=== PATIENT | female | born 1990 | race Caucasian/White ===

== ENCOUNTER 2016-09-10 04:04 | Emergency (ER) | payer SELFPAY ==
[2016-09-10] MEDS ORDERED: LIDOCAINE 1% 50 ML MDV SUBQ STA (04:54)
[2016-09-10] MEDS ORDERED: LIDOCAINE-MPF 1% 5 ML VIAL ONE (05:01)
[2016-09-10] MEDS ORDERED: BACITRACIN OINT TOP STA (05:28)
== END 2016-09-10 05:54 | disposition home or self-care (01) ==
DX: S61.211A Laceration without foreign body of left index finger without damage to nail, initial encounter (principal); W26.0XXA Contact with knife, initial encounter; Y93.G1 Activity, food preparation and clean up; Y92.009 Unspecified place in unspecified non-institutional (private) residence as the place of occurrence of the external cause; F17.200 Nicotine dependence, unspecified, uncomplicated

== ENCOUNTER 2016-10-05 09:47 | Emergency (ER) | payer MEDICAID ==
[2016-10-05] MEDS ORDERED: PROMETHAZINE 25 MG/1 ML VIAL IM STA (10:21)
[2016-10-05] MEDS ORDERED: KETOROLAC 60 MG/2 ML VIAL IM STA (10:21)
[2016-10-05] MEDS ORDERED: HYDROmorphone 1 MG/ML SYRINGE IM STA (10:21)
[2016-10-05] MEDS ORDERED: HYDROmorphone 1 MG/ML SYRINGE ONE (10:28)
[2016-10-05] MEDS ORDERED: PROMETHAZINE 25 MG/1 ML VIAL ONE (10:29)
[2016-10-05] MEDS ORDERED: KETOROLAC 60 MG/2 ML VIAL ONE (10:29)
[2016-10-05] MEDS ORDERED: oxyCOD/ACETAMIN 5 MG/325 MG TABLET PO STA (13:08)
[2016-10-05] MEDS ORDERED: ONDANSETRON ODT 4 MG TABLET TL STA (13:08)
[2016-10-05] MEDS ORDERED: oxyCOD/ACETAMIN 5 MG/325 MG TABLET PO ONE (13:11)
[2016-10-05] MEDS ORDERED: ONDANSETRON ODT 4 MG TABLET ONE (13:12)
== END 2016-10-05 13:23 | disposition home or self-care (01) ==
DX: R10.32 Left lower quadrant pain (principal); R19.7 Diarrhea, unspecified; R11.0 Nausea; Z87.42 Personal history of other diseases of the female genital tract; F17.200 Nicotine dependence, unspecified, uncomplicated
CPT/HCPCS: 36415; 76705; 76830; 76856; 80053; 81003; 83690; 85025; 93976; 96372; 99283; 99284; A9270; J1170; Q0162

== ENCOUNTER 2016-12-21 13:46 | Emergency (ER) | payer OTHER, MEDICAID ==
[2016-12-21 15:15] VITALS: BP 135/98
--- NOTE | 2016-12-21 15:27 | ED Physician Documentation ---
History of Present Illness - Stated complaint Stated Complaint: BACK PX - Chief complaint Chief Complaint: Back Pain - Additonal information Additional information: hx from pt 26 y/o female lifted awkwardly at work and hurt her low back pain with ROM no numbness weakness or incont otherwise well denies preg Review of Systems Constitutional: denies: Fever GI: denies: Abdominal Pain : denies: Incontinent, Now EGA Musculoskeletal: reports: Back pain Neurologic: denies: Focal weakness, Numbness Immunocompromised: denies: Immunocompromised PD PAST MEDICAL HISTORY - Past Medical History Cardiovascular: None Respiratory: None Neuro: None Endocrine/Autoimmune: None GI: Other 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: Endometriosis, Ovarian cysts : None HEENT: None Psych: None Musculoskeletal: None Derm: None - Past Surgical History Past Surgical History: Yes General: Colonoscopy /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: Hysterectomy, Other - Present Medications Home Medications: Ambulatory Orders Medication Instructions Recorded Confirmed Cyclobenzaprine [Flexeril] 10 mg PO TID PRN #20 tablet 12/21/16 Ibuprofen [Motrin] 400 mg PO Q6H PRN #30 tablet 12/21/16 Lidocaine Patch 5% [Lidoderm Patch] 1 each TOP DAILY PRN #10 patch 12/21/16 - Allergies Allergies/Adverse Reactions: Allergies Allergy/AdvReac Type Severity Reaction Status Date / Time hydrocodone bitartrate * AdvReac Nausea Verified 12/21/16 13:51 [From Vicodin] - Social History Does the pt smoke?: Yes Smoking Status: Current every day smoker Does the pt drink ETOH?: Yes Does the pt have substance abuse?: No - Immunizations Immunizations are current?: Yes - POLST Patient has POLST: No PD ED PE NORMAL - Vitals Vital signs reviewed: Yes - Neck Neck: Supple, no meningeal sign - Cardiac Cardiac: RRR - Respiratory Respiratory: No respiratory distress, Clear bilaterally - Abdomen Abdomen: Soft, Non tender, Other (no pulsatile mass) - Back Back: No spinal TTP (no redness swelling or warmth, soft tissue spasm and limited ROM) - Derm Derm: Normal color, Other (aged bruise to cheek - pt state dog jumped up and hit her face) - Neuro 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, No motor deficit (hip flex knee ext foot dorsi plantar and great toe ext 5/5, no clonus, patellar DTR 2+/4 hue, nl sensation, denies saddle anesthesia), No sensory deficit Results - Vitals Vitals: Vital Signs - 24 hr 12/21/16 12/21/16 13:49 15:10 Temperature 36.2 C L 36.6 C Heart Rate 77 87 Respiratory 18 18 Rate Blood Pressure 130/94 H 135/98 H O2 Saturation 99 99 Oxygen O2 Source Room air PD MEDICAL DECISION MAKING - ED course ED course: muscular LBP s red flags Departure - Departure Disposition: Home, Self Care Clinical Impression: Back pain Qualifiers: Back pain location: low back pain Chronicity: acute Back pain laterality: unspecified Sciatica presence: without sciatica Qualified Code(s): M54.5 - Low back pain Condition: Good Follow-Up: Andreas Thomas PA-C [Primary Care Provider] - Prescriptions: Cyclobenzaprine [Flexeril] 10 mg PO TID PRN #20 tablet PRN Reason: Spasms Lidocaine Patch 5% [Lidoderm Patch] 1 each TOP DAILY PRN #10 patch PRN Reason: Pain Ibuprofen [Motrin] 400 mg PO Q6H PRN #30 tablet PRN Reason: Pain Comments: And also please have your PMD recheck your blood sugar - it was high today Forms: Activity restrictions
== END 2016-12-21 15:46 | disposition home or self-care (01) ==
LOC: ED 13:46
DX: M54.5 Low back pain (principal); X50.0XXA Overexertion from strenuous movement or load, initial encounter; Y93.89 Activity, other specified; Y92.89 Other specified places as the place of occurrence of the external cause; Y99.0 Civilian activity done for income or pay; F17.200 Nicotine dependence, unspecified, uncomplicated
CPT/HCPCS: 99283

== ENCOUNTER 2017-05-14 18:52 | Emergency (ER) | payer MEDICAID ==
--- NOTE | 2017-05-14 19:13 | ED Physician Documentation ---
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 No sick contacts or recent travel. No possibility of , she has had a hysterectomy.) Review of Systems Constitutional: reports: Chills, Fatigue. denies: Fever Ears: denies: Ear pain Nose: denies: Rhinorrhea / runny nose Throat: reports: Sore throat PD PAST MEDICAL HISTORY - Past Medical History Cardiovascular: None Respiratory: None Neuro: None Endocrine/Autoimmune: None GI: Other [employer]: Endometriosis, Ovarian cysts : None HEENT: None Psych: None Musculoskeletal: None Derm: None - Past Surgical History Past Surgical History: Yes General: Colonoscopy /[facility]: Hysterectomy, Other - Present Medications Home Medications: Ambulatory Orders Medication Instructions Recorded Confirmed No Known Home Medications [No 05/14/17 05/14/17 Known Home Medications] - Allergies Allergies/Adverse Reactions: Allergies Allergy/AdvReac Type Severity Reaction Status Date / Time hydrocodone bitartrate * AdvReac Nausea Verified 05/14/17 19:06 [From Vicodin] - Social History Does the pt smoke?: Yes Smoking Status: Current every day smoker Does the pt drink ETOH?: Yes Does the pt have substance abuse?: No - Immunizations Immunizations are current?: Yes - POLST Patient has POLST: No PD ED PE NORMAL - Vitals Vital signs reviewed: Yes - General General: Alert and oriented X 3, No acute distress - HEENT HEENT: Other (Tonsillar pillars are red but not swollen, no exudates, she has moderate anterior cervical adenopathy. TMs are normal.) - Neck Neck: Supple, no meningeal sign, No bony TTP - Cardiac Cardiac: RRR, No murmur - Respiratory Respiratory: No respiratory distress, Clear bilaterally - Neuro 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, Normal speech - Psych Psych: Normal mood, Normal affect Results - Vitals Vitals: Vital Signs - 24 hr 05/14/17 19:02 Temperature 36.7 C Heart Rate 94 Respiratory 16 Rate Blood Pressure 151/104 H O2 Saturation 100 Oxygen O2 Source Room air - Labs Labs: Laboratory Tests 05/14/17 19:09 Group A Strep Rapid Negative Departure - Departure Disposition: 01 Home, Self Care Clinical Impression: Pharyngitis Qualifiers: Pharyngitis/tonsillitis etiology: unspecified etiology Qualified Code(s): J02.9 - Acute pharyngitis, unspecified Condition: Good Record reviewed to determine appropriate education?: Yes Instructions: ED Pharyngitis Viral Report Pending Comments: Your blood pressure was elevated today on check into the emergency department. This does not mean that you have hypertension, it is a common phenomenon to come to the emergency department and have elevated blood pressure. I recommend that you see your primary care physician within the week to have it rechecked when you are feeling better. Forms: Activity restrictions
[2017-05-14 20:01] LABS: RAPID STREP SCREEN REAGENT QC YELLOW (YELLOW)
[2017-05-14 20:12] VITALS: BP 125/93
== END 2017-05-14 20:12 | disposition home or self-care (01) ==
LOC: ED 18:52
DX: J02.9 Acute pharyngitis, unspecified (principal); R03.0 Elevated blood-pressure reading, without diagnosis of hypertension
CPT/HCPCS: 87070; 87430; 99282; 99283

== ENCOUNTER 2017-07-03 09:59 | Emergency (ER) | payer MEDICAID ==
[2017-07-03] MEDS ORDERED: DEXAMETHASONE 10 MG/ML VIAL PO STA (10:28)
[2017-07-03] MEDS ORDERED: DEXAMETHASONE 10 MG/ML VIAL ONE (10:36)
[2017-07-03] MEDS ORDERED: CHERRY SYRUP 10 ML UDC PO ONE (10:36)
[2017-07-03 10:39] LABS: RAPID STREP SCREEN REAGENT QC YELLOW (YELLOW)
--- NOTE | 2017-07-03 11:11 | ED Physician Documentation ---
History of Present Illness - Stated complaint Stated Complaint: SORE THROAT - Chief complaint Chief Complaint: Heent - History obtained from History obtained from: Patient (pt states that she has had a sore throat for the past 24 hours. had sinus congestion about a week ago, no travel, no problems breathing, no rashes, no headache,) Review of Systems Unable to obtain: Unresponsive Constitutional: denies: Fever, Chills Eyes: denies: Discharge Ears: denies: Ear pain Nose: reports: Congestion. denies: Rhinorrhea / runny nose, Sinus pressure / pain Throat: reports: Sore throat, Swollen tonsils. 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, Other - Present Medications Home Medications: Ambulatory Orders Medication Instructions Recorded Confirmed Loratadine [Claritin] 10 mg PO DAILY #30 tablet 07/03/17 - Allergies Allergies/Adverse Reactions: Allergies Allergy/AdvReac Type Severity Reaction Status Date / Time hydrocodone bitartrate * AdvReac Nausea Verified 05/14/17 19:06 [From Vicodin] - Social History Does the pt smoke?: Yes Smoking Status: Current every day smoker Does the pt drink ETOH?: Yes Does the pt have substance abuse?: No - Immunizations Immunizations are current?: Yes - POLST Patient has POLST: No PD ED PE NORMAL - Vitals Vital signs reviewed: Yes - General General: Alert and oriented X 3, Well developed/nourished - HEENT HEENT: Atraumatic, EOMI, Ears normal, Moist mucous membranes, Pharynx benign, Dentition benign - Neck Neck: No adenopathy - Cardiac Cardiac: RRR, No murmur - Respiratory Respiratory: No respiratory distress, Clear bilaterally - Abdomen Abdomen: Soft - Derm Derm: Normal color, No rash - Extremities Extremities: No edema - Neuro 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 Eye Opening: Spontaneous Motor: Obeys Commands Verbal: Oriented GCS Score: 15 Results - Vitals Vitals: Vital Signs - 24 hr 07/03/17 10:07 Temperature 36.0 C L Heart Rate 91 Respiratory 14 Rate Blood Pressure 139/97 H O2 Saturation 100 Oxygen O2 Source Room air - Labs Labs: Laboratory Tests 07/03/17 10:13 Group A Strep Rapid Negative PD MEDICAL DECISION MAKING - ED course Complexity details: d/w patient ED course: rapid strep neg. no respiratory issues. doubt PNA, suspect this is viral URI with post nasal drip. no indication for ABX. discussed with pt. will treat symptoms. Departure - Departure Disposition: 01 Home, Self Care Clinical Impression: Pharyngitis Condition: Good Instructions: ED Pharyngitis Viral Follow-Up: primary, care provider [Other] Prescriptions: Loratadine [Claritin] 10 mg PO DAILY #30 tablet Comments: Increase your fluid intake. return to the ER for any new or worsening symptoms.
[2017-07-03 11:22] VITALS: BP 118/82
== END 2017-07-03 11:35 | disposition home or self-care (01) ==
LOC: ED 09:59
DX: J02.9 Acute pharyngitis, unspecified (principal); F17.200 Nicotine dependence, unspecified, uncomplicated
CPT/HCPCS: 87070; 87430; 99283; A9270

== ENCOUNTER 2017-08-29 20:32 | Emergency (ER) | payer SELFPAY ==
--- NOTE | 2017-08-29 20:45 | ED Physician Documentation ---
PD HPI LOWER EXT INJURY - Stated complaint Stated Complaint: R KNEE/TORRES PX - Chief complaint Chief Complaint: Ext Problem - History obtained from History obtained from: Patient - History of Present Illness PD HPI LOW EXT INJURY LOCATION: Right, Lower leg Type of injury: Fall Where injury occurred: Work Timing - onset: Other (initially she fell at work 1 week ago on slick floor, struck right anterior torres on ground, c/o proximal-mid right anterior tibial pain. This gradually improved, but she again fell today on the same floor and again reinjured the same right pre-tibial area. Worse with palpation.) Timing - details: Abrupt onset Pain level now: 8 Improved by: Rest Worsened by: Moving, Palpating Associated symptoms: Tingling. No: Weakness, Swelling, Discolored Similar symptoms before: Has not had sx before - Additional information Additional information: 6th [facility] ED visit over past 12 months Review of Systems Skin: denies: Abrasion (s), Laceration (s) Musculoskeletal: reports: Extremity pain, Pain with weight bearing. denies: Joint pain, Joint swelling Neurologic: reports: Numbness (paresthesias and decreased sensation). 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, Ovarian cysts : None HEENT: None Psych: None Musculoskeletal: None Derm: None - Past Surgical History Past Surgical History: Yes General: Colonoscopy /LEDGER POSTER: Hysterectomy, Other - Present Medications Home Medications: Ambulatory Orders Medication Instructions Recorded Confirmed No Known Home Medications [No 08/29/17 08/29/17 Known Home Medications] - Allergies Allergies/Adverse Reactions: Allergies Allergy/AdvReac Type Severity Reaction Status Date / Time hydrocodone bitartrate * AdvReac Nausea Verified 08/29/17 20:40 [From Vicodin] - Social History Does the pt smoke?: Yes Smoking Status: Current every day smoker Does the pt drink ETOH?: Yes Does the pt have substance abuse?: No - Immunizations Immunizations are current?: Yes - POLST Patient has POLST: No PD ED PE NORMAL - Vitals Vital signs reviewed: Yes - General General: Alert and oriented X 3, No acute distress, Well developed/nourished - Derm Derm: Normal color, Warm and dry, No rash - Extremities Extremities: No deformity, Normal ROM s pain, No edema - Neuro Neuro: No motor deficit, No sensory deficit PD ED PE EXPANDED - Extremities Extremities: Tenderness NELLIE LE visual: 1 - tenderness (TTP) Results - Vitals Vitals: Vital Signs - 24 hr 08/29/17 08/29/17 20:37 22:21 Temperature 37.1 C 36.9 C Heart Rate 124 H 90 Respiratory 18 18 Rate Blood Pressure 138/103 H 140/92 H O2 Saturation 100 98 Oxygen O2 Source Room air - Rads (name of study) right tib/fib xrays Radiology: Prelim report reviewed, See rad report PD MEDICAL DECISION MAKING - ED course Complexity details: reviewed results, re-evaluated patient, considered differential, d/w patient Departure - Departure Disposition: 01 Home, Self Care Clinical Impression: Pain of lower extremity, Contusion of lower leg, right Condition: Good Instructions: ED Contusion Lower Ext Follow-Up: Neftali Zacarias PA-C [Primary Care Provider] - Within 1 week Forms: Activity restrictions Discharge Date/Time: 08/29/17 22:35
--- NOTE | 2017-08-29 21:38 | XRAY Report ---
EXAM: RIGHT TIBIA/FIBULA RADIOGRAPHY EXAM DATE: 08/29/2017 09:28 PM. CLINICAL HISTORY: Proximal/mid tib/fib injury. COMPARISON: 01/16/2011. TECHNIQUE: 2 views. FINDINGS: Bones: No fracture or bone lesion. Joints: The visualized knee and ankle joints are normal. No effusions. Soft Tissues: No focal soft tissue swelling. IMPRESSION: No acute osseous abnormality. [facility] Referring Provider Line: [phone] SITE ID: [id number]
[2017-08-29 22:22] VITALS: BP 140/92
== END 2017-08-29 22:35 | disposition home or self-care (01) ==
LOC: ED 20:32
DX: M79.604 Pain in right leg (principal); S80.11XA Contusion of right lower leg, initial encounter; W18.30XA Fall on same level, unspecified, initial encounter; Y99.0 Civilian activity done for income or pay; F17.200 Nicotine dependence, unspecified, uncomplicated
CPT/HCPCS: 99283

== ENCOUNTER 2018-04-10 18:34 | Emergency (ER) | payer MEDICAID ==
[2018-04-10 20:45] VITALS: BP 138/94
[2018-04-10 20:58] LABS: BILIRUBIN,URINE NEGATIVE (NEGATIVE); GLUCOSE, URINE (UA) NEGATIVE (NEGATIVE); KETONES,URINE (UA) NEGATIVE (NEGATIVE); LEUKOCYTE ESTERASE, URINE NEGATIVE (NEGATIVE); NITRITE,URINE NEGATIVE (NEGATIVE); OCCULT BLOOD,URINE NEGATIVE (NEGATIVE); PROTEIN,URINE NEGATIVE (NEGATIVE); UROBILINOGEN,URINE 0.2 (NORMAL) E.U./dL (NORMAL)
[2018-04-10 21:00] LABS: CLARITY,URINE CLEAR (CLEAR)
--- NOTE | 2018-04-10 21:13 | ED Physician Documentation ---
PD HPI BACK PAIN - Stated complaint Stated Complaint: BK PX - Chief complaint Chief Complaint: Back Pain - History obtained from History obtained from: Patient - History of Present Illness Timing - onset: How many days ago (3) Timing - duration: Days Timing - details: Gradual onset Pain level now: 8 Location: Lower, Left Quality: Pain, Spasm Associated symptoms: No: Fever, Weakness, Numbness, Incontinent of urine, Unable to urinate, Hematuria, Incontinent of stool Improves with: Rest Worsened by: Movement Similar symptoms before: Has not had sx before Recently seen: Not recently seen - Additional information Additional information: woke 3 days ago from sleep with left mid/low back pain. Has been working past 2 days and has experienced gradually worsening of the back pain since it started 3 days ago. Pain is distinctly worse with movement. Contacted PMD's office, scheduled for next available appointment but this won't be for 2-3 weeks. 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, Ovarian cysts : None HEENT: None Psych: None Musculoskeletal: None Derm: None - Past Surgical History Past Surgical History: Yes General: Colonoscopy /BARREL 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: Hysterectomy, Other - Present Medications Home Medications: Ambulatory Orders Medication Instructions Recorded Confirmed Cyclobenzaprine [Flexeril] 10 mg PO TID PRN #20 tablet 04/10/18 Ondansetron Odt [Zofran] 4 mg TL Q6H PRN #14 tablet 04/10/18 oxyCODONE/ACET 5/325 [Percocet 5 1 - 2 each PO Q6H PRN #14 tablet 04/10/18 mg/325 mg] - Allergies Allergies/Adverse Reactions: Allergies Allergy/AdvReac Type Severity Reaction Status Date / Time hydrocodone bitartrate * AdvReac Nausea Verified 04/10/18 18:44 [From Vicodin] - Social History Does the pt smoke?: Yes Smoking Status: Current every day smoker Does the pt drink ETOH?: Yes Does the pt have substance abuse?: No - Immunizations Immunizations are current?: Yes - POLST Patient has POLST: No PD ED PE NORMAL - Vitals Vital signs reviewed: Yes - General General: Alert and oriented X 3, No acute distress, Well developed/nourished - Cardiac Cardiac: RRR, No murmur - Respiratory Respiratory: No respiratory distress, Clear bilaterally - Abdomen Abdomen: Soft, Non tender - Back Back: No CVA TTP, No spinal TTP - Derm Derm: No rash - Neuro Neuro: No motor deficit, No sensory deficit Results - Vitals Vitals: Vital Signs - 24 hr 04/10/18 04/10/18 18:41 20:45 Temperature 36 C L Heart Rate 88 71 Respiratory 16 16 Rate Blood Pressure 133/103 H 138/94 H O2 Saturation 98 100 Oxygen O2 Source Room air - Labs Labs: Laboratory Tests 04/10/18 20:48 Urine Color YELLOW Urine Clarity CLEAR Urine pH 6.0 Ur Specific [place] 1.020 Urine Protein NEGATIVE Urine Glucose (UA) NEGATIVE Urine Ketones NEGATIVE Urine Occult Blood NEGATIVE Urine Nitrite NEGATIVE Urine Bilirubin NEGATIVE Urine Urobilinogen 0.2 (NORMAL) Ur Leukocyte Esterase NEGATIVE Ur Microscopic Review NOT INDICATED Urine Culture Comments NOT INDICATED PD MEDICAL DECISION MAKING - ED course Complexity details: considered differential, d/w patient - Sepsis Event Vital Signs: Vital Signs - 24 hr 04/10/18 04/10/18 18:41 20:45 Temperature 36 C L Heart Rate 88 71 Respiratory 16 16 Rate Blood Pressure 133/103 H 138/94 H O2 Saturation 98 100 Oxygen O2 Source Room air Departure - Departure Disposition: 01 Home, Self Care Clinical Impression: Back pain Condition: Good Instructions: NARCOTIC, Oral, ED Neck Back Pain General Prescriptions: Cyclobenzaprine [Flexeril] 10 mg PO TID PRN #20 tablet PRN Reason: Spasms Ondansetron Odt [Zofran] 4 mg TL Q6H PRN #14 tablet PRN Reason: Nausea / Vomiting oxyCODONE/ACET 5/325 [Percocet 5 mg/325 mg] 1 - 2 each PO Q6H PRN #14 tablet PRN Reason: Pain Comments: Follow up with your doctor as scheduled Forms: Activity restrictions Discharge Date/Time: 04/10/18 21:48
[2018-04-10] MEDS ORDERED: CYCLOBENZAPRINE 10 MG TABLET PO STA (21:37)
[2018-04-10] MEDS ORDERED: oxyCODONE 5 MG TABLET PO STA (21:37)
[2018-04-10] MEDS ORDERED: ONDANSETRON ODT 4 MG TABLET TL STA (21:42)
== END 2018-04-10 21:48 | disposition home or self-care (01) ==
LOC: ED 18:34
DX: M54.9 Dorsalgia, unspecified (principal); F17.200 Nicotine dependence, unspecified, uncomplicated
CPT/HCPCS: 81003; 99283; A9270; Q0162; 81001; 87086

== ENCOUNTER 2018-09-09 05:24 | Outpatient (CLI) | payer MEDICAID | END 2018-09-09 05:25 | disposition critical access hospital (66) | LOC: EMS 05:24 | PROVIDERS: ATTEND Surgery | DX: R56.9 Unspecified convulsions (principal) | CPT/HCPCS: A0425; A0429 ==

== ENCOUNTER 2018-09-09 05:42 | Emergency (ER) | payer MEDICAID ==
--- NOTE | 2018-09-09 05:54 | ED Physician Documentation ---
History of Present Illness - Stated complaint Stated Complaint: BACK PAIN - Chief complaint Chief Complaint: Neuro - Additonal information Additional information: 27-year-old female was brought to the emergency department for evaluation of a possible seizure and back pain. The patient reports drinking heavily and Reports a possible seizure. Per second and accounts the patient had an episode where she was unresponsive and jerking for 20 seconds. No reports of postictal episode. The patient reports thoracic and lumbar spine pain. The patient denies chest pain, palpitations or any co-other coingestions. Presently the patient only reports back pain. No reports of saddle anesthesia, urinary retention, hematuria, overflow incontinence, motor weakness or sensory changes. No other associated symptoms. Presently the symptoms are moderate. 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, Ovarian cysts : None HEENT: None Psych: None Musculoskeletal: None Derm: None - Past Surgical History Past Surgical History: Yes General: Colonoscopy /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: Hysterectomy, Other - Present Medications Home Medications: Ambulatory Orders Medication Instructions Recorded Confirmed Cyclobenzaprine [Flexeril] 10 mg PO TID PRN #20 tablet 04/10/18 Ondansetron Odt [Zofran] 4 mg TL Q6H PRN #14 tablet 04/10/18 oxyCODONE/ACET 5/325 [Percocet 5 1 - 2 each PO Q6H PRN #14 tablet 04/10/18 mg/325 mg] - Allergies Allergies/Adverse Reactions: Allergies Allergy/AdvReac Type Severity Reaction Status Date / Time hydrocodone bitartrate * AdvReac Nausea Verified 09/09/18 05:49 [From Vicodin] - Social History Does the pt smoke?: Yes Smoking Status: Current every day smoker Does the pt drink ETOH?: Yes Does the pt have substance abuse?: No - Immunizations Immunizations are current?: Yes - POLST Patient has POLST: No PD ED PE NORMAL - General General: Alert and oriented X 3 - HEENT HEENT: Atraumatic, PERRL, EOMI, Ears normal - Neck Neck: Other (The patient is in a cervical collar and has diffuse back pain, the patient's cervical spine is unable to be cleared using the Nexus criteria) - Cardiac Cardiac: RRR (Tachycardia with regular rate), Strong equal pulses - Respiratory Respiratory: No respiratory distress, Clear bilaterally - Abdomen Abdomen: Soft, Non tender - Back Back: No spinal TTP (The patient is tender throughout the cervical, thoracic and lumbar spine) - Derm Derm: Normal color - Neuro 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, 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, No motor deficit, No sensory deficit, Normal speech PD ED PE EXPANDED - Psych Psych: Intoxicated / AOB Results - Vitals Vitals: Vital Signs - 24 hr 09/09/18 05:44 Temperature 36.2 C L Heart Rate 114 H Respiratory 20 Rate Blood Pressure 140/110 H O2 Saturation 99 Oxygen O2 Source Room air - EKG (time done) 0632 Rate: Rate (enter#) Rhythm: Sinus tachycardia [place]: Normal Intervals: Normal CT, QRS normal QRS: Normal Ischemia: Normal ST segments - Labs Labs: Laboratory Tests 09/09/18 09/09/18 09/09/18 06:06 06:06 06:06 WBC 7.8 RBC 3.98 L Hgb 13.8 Hct 40.2 MCV 101.0 H MCH 34.6 H MCHC 34.3 RDW 12.8 Plt Count 215 MPV 9.0 Neut # (Auto) 4.9 Lymph # (Auto) 2.4 [place] # (Auto) 0.4 Eos # (Auto) 0.1 Baso # (Auto) 0.1 Absolute Nucleated RBC 0.01 Nucleated RBC % 0.1 Sodium 136 Potassium 3.4 L Chloride 104 Carbon Dioxide 22 Anion Gap 10.0 BUN 9 Creatinine 0.8 Estimated GFR (MDRD) 85 L Glucose 94 Calcium 8.9 Total Bilirubin 0.6 AST 26 ALT 20 Alkaline Phosphatase 55 Total Protein 7.9 Albumin 4.2 Globulin 3.7 Albumin/Globulin Ratio 1.1 Lipase 32 Serum HCG, Qual NEGATIVE Salicylates < 6.0 Acetaminophen < 10 L Ethyl Alcohol 287.7 PD MEDICAL DECISION MAKING - ED course ED course: At 7 AM the case was turned over to the oncoming physician Dr. Howell for follow-up on the lab work, CT scan of the head and neck and x-rays of the lumbar and thoracic spine, and final disposition. Departure - Departure Clinical Impression: Seizure, Intoxication Back pain Qualifiers: Back pain location: back pain in unspecified location Chronicity: acute Back pain laterality: unspecified Qualified Code(s): M54.9 - Dorsalgia, unspecified Condition: Stable Comments: Please follow-up with your primary care physician this coming week for recheck. Please asked for your primary care to arrange for an outpatient EEG to further assess your symptoms which occurred today. Please return to the emergency department any point for reevaluation for worsening symptoms or any concerns
[2018-09-09] MEDS: SODIUM CHLORIDE 0.9% 1,000 ML IV ONE (06:17)
[2018-09-09 06:22] LABS: BASOPHILS # (AUTO) 0.1 10^3/uL (0.0-0.1); BASOPHILS % (AUTO) 0.6 %; EOSINOPHILS # (AUTO) 0.1 10^3/uL (0.0-0.7); EOSINOPHILS % (AUTO) 0.9 %; HGB - HEMOGLOBIN 13.8 g/dL (12.0-16.0); LYMPHOCYTES # (AUTO) 2.4 10^3/uL (1.5-3.5); LYMPHOCYTES % (AUTO) 30.8 %; MEAN CORPUSCULAR HEMOGLOBIN 34.6 pg (27.0-31.0); MEAN CORPUSCULAR HGB CONC 34.3 g/dL (32.0-36.0); MONOCYTES # (AUTO) 0.4 10^3/uL (0.0-1.0); MONOCYTES % (AUTO) 4.8 %; NEUTROPHILS # (AUTO) 4.9 10^3/uL (1.5-6.6); NEUTROPHILS % (AUTO) 62.9 %; PLT - PLATELET COUNT 215 10^3/uL (130-450); RED BLOOD COUNT 3.98 10^6/uL (4.20-5.40); RED CELL DISTRIBUTION WIDTH 12.8 % (12.0-15.0); WHITE BLOOD COUNT 7.8 x10^3/uL (4.8-10.8)
[2018-09-09 06:43] LABS: HCG,QUALITATIVE BLOOD NEGATIVE
[2018-09-09 06:47] LABS: ACETAMINOPHEN < 10 ug/mL (10-30); ALBUMIN 4.2 g/dL (3.2-5.5); ALBUMIN/GLOBULIN RATIO 1.1 (1.0-2.2); ALKALINE PHOSPHATASE 55 IU/L (42-121); ALT ALANINE AMINOTRANSFERASE 20 IU/L (10-60); AST ASPARTATE AMINOTRANSFERASE 26 IU/L (10-42); BILIRUBIN,TOTAL 0.6 mg/dL (0.2-1.0); BUN - BLOOD UREA NITROGEN 9 mg/dL (6-20); CALCIUM 8.9 mg/dL (8.5-10.3); CARBON DIOXIDE - CO2 22 mmol/L (21-32); CHLORIDE 104 mmol/L (101-111); CREATININE 0.8 mg/dL (0.4-1.0); GFR - MDRD 85 (>89); GLUCOSE 94 mg/dL (70-100); LIPASE 32 U/L (22-51); SALICYLATE < 6.0 mg/dL; SODIUM 136 mmol/L (135-145); TOTAL PROTEIN 7.9 g/dL (6.7-8.2)
[2018-09-09 06:57] LABS: MUDS CUTOFF CONCENTRATIONS CUTOFF CONC BELOW:
[2018-09-09 06:58] LABS: BILIRUBIN,URINE NEGATIVE (NEGATIVE); GLUCOSE, URINE (UA) NEGATIVE (NEGATIVE); KETONES,URINE (UA) NEGATIVE (NEGATIVE); LEUKOCYTE ESTERASE, URINE NEGATIVE (NEGATIVE); NITRITE,URINE NEGATIVE (NEGATIVE); OCCULT BLOOD,URINE NEGATIVE (NEGATIVE); PROTEIN,URINE NEGATIVE (NEGATIVE); UROBILINOGEN,URINE 0.2 (NORMAL) E.U./dL (NORMAL)
[2018-09-09 07:06] LABS: CLARITY,URINE CLEAR (CLEAR)
[2018-09-09 07:45] LABS: AMPHETAMINE SCREEN,URINE NEGATIVE (NEGATIVE); BENZODIAZEPINES SCREEN, URINE NEGATIVE (NEGATIVE); COCAINE SCREEN URINE NEGATIVE (NEGATIVE); METHADONE SCREEN, URINE NEGATIVE (NEGATIVE); METHAMPHETAMINES SCREEN, URINE NEGATIVE (NEGATIVE); OPIATE SCREEN, URINE NEGATIVE (NEGATIVE); OXYCODONE SCREEN, URINE NEGATIVE (NEGATIVE); PROPOXYPHENE SCREEN, URINE NEGATIVE (NEGATIVE); TRICYCLIC ANTIDEPRESSANT,URINE NEGATIVE (NEGATIVE)
--- NOTE | 2018-09-09 07:55 | CT Report ---
Reason: gaviota bacon, fawno Procedure Date: 09/09/2018 Accession Number: [id number] / [id number] Procedure: CT - HEAD WO CPT Code: FULL RESULT: EXAM: CT HEAD EXAM DATE: 09/09/2018 07:10 AM. CLINICAL HISTORY: gaviota Bacon etho. COMPARISON: None. TECHNIQUE: Multiaxial CT images were obtained from the foramen magnum to the vertex. Reformats: Sagittal and coronal. IV contrast: None. In accordance with CT protocol optimization, one or more of the following dose reduction techniques were utilized for this exam: automated exposure control, adjustment of mA and/or KV based on patient size, or use of iterative reconstructive technique. FINDINGS: Parenchyma: No intraparenchymal hemorrhage. No evidence of mass, midline shift, or CT findings of infarction. Linton-white differentiation is distinct. Extraaxial Spaces: Normal for age. No subdural or epidural collections identified. Ventricles: Normal in size and position. Sinuses and Orbits: Mild chronic appearing sphenoid sinus disease. Imaged paranasal sinuses, orbits, and mastoids show no other abnormality. Bones: No evidence of fracture or calvarial defect. IMPRESSION: No evidence of acute intracranial process RADIA
--- NOTE | 2018-09-09 08:00 | CT Report ---
Reason: redd, gaviota, fawno Procedure Date: 09/09/2018 Accession Number: [id number] / [id number] Procedure: CT - CERVICAL SPINE WO CPT Code: FULL RESULT: EXAM: CT CERVICAL SPINE WITHOUT CONTRAST DATE: 09/09/2018 07:10 AM. HISTORY: Redd, gaviota, melissa. COMPARISONS: None. TECHNIQUE: Thin-section axial images were acquired of the cervical spine without contrast. Post-processing: Coronal and sagittal reformats. Other: None. In accordance with CT protocol optimization, one or more of the following dose reduction techniques were utilized for this exam: automated exposure control, adjustment of mA and/or KV based on patient size, or use of iterative reconstructive technique. FINDINGS: Alignment: No scoliosis or spondylolisthesis. Bones: No fracture or bone lesion. There is mild chronic appearing sphenoid sinus disease. Interspace Levels/Facets: C1-C2: Unremarkable. C2-C3: Unremarkable. C3-C4: Unremarkable. C4-C5: Unremarkable. C5-C6: Unremarkable. C6-C7: Unremarkable. C7-T1: Unremarkable. Musculature: No fatty atrophy. Other: The paravertebral and prevertebral soft tissues are unremarkable. The lung apices are clear. IMPRESSION: No evidence of cervical spine fracture RADIA
--- NOTE | 2018-09-09 08:09 | XRAY Report ---
Reason: back pain Procedure Date: 09/09/2018 Accession Number: [id number] / [id number] Procedure: XR - Thoracic Spine 2 View CPT Code: FULL RESULT: EXAM: THORACIC SPINE RADIOGRAPHY EXAM DATE: 09/09/2018 07:23 AM. CLINICAL HISTORY: Back pain. COMPARISON: Chest 07/07/2014. TECHNIQUE: 2 views. FINDINGS: Alignment: No spondylolisthesis or scoliosis. Bones: No fractures or bone lesions. Disks: Disk heights are maintained. Soft Tissues: The visualized lungs and cardiomediastinal silhouette are unremarkable. IMPRESSION: Negative thoracic spine radiography. RADIA
--- NOTE | 2018-09-09 08:10 | XRAY Report ---
Reason: back pain Procedure Date: 09/09/2018 Accession Number: [id number] / [id number] Procedure: XR - Lumbar Spine 2 View CPT Code: FULL RESULT: EXAM: LUMBOSACRAL SPINE RADIOGRAPHY EXAM DATE: 09/09/2018 07:24 AM. CLINICAL HISTORY: Back pain. COMPARISONS: None. TECHNIQUE: 2 views. FINDINGS: Alignment: No spondylolisthesis or scoliosis. Bones: Five [id number] lumbar vertebral bodies are present. No fractures or bone lesions. Disks: Disk heights are maintained. Facets: No degenerative changes. Sacroiliac Joints: Unremarkable. Soft Tissues: The visualized bowel gas pattern is normal. IMPRESSION: Negative lumbar spine radiography. RADIA
--- NOTE | 2018-09-09 08:13 | ED Physician Documentation ---
History of Present Illness - Stated complaint Stated Complaint: BACK PAIN - Chief complaint Chief Complaint: Neuro - History obtained from History obtained from: Patient - History of Present Illness Timing: Today PD PAST MEDICAL HISTORY - Past Medical History Past Medical History: Yes Cardiovascular: None Respiratory: None Endocrine/Autoimmune: None GI: Other ASSOCIATE BROKER: Endometriosis, Ovarian cysts : None HEENT: None Psych: None Musculoskeletal: None Derm: None - Past Surgical History Past Surgical History: Yes General: Colonoscopy /ASSOCIATE BROKER: Hysterectomy, Other - Present Medications Home Medications: Ambulatory Orders Medication Instructions Recorded Confirmed Cyclobenzaprine [Flexeril] 10 mg PO TID PRN #20 tablet 04/10/18 Ondansetron Odt [Zofran] 4 mg TL Q6H PRN #14 tablet 04/10/18 oxyCODONE/ACET 5/325 [Percocet 5 1 - 2 each PO Q6H PRN #14 tablet 04/10/18 mg/325 mg] - Allergies Allergies/Adverse Reactions: Allergies Allergy/AdvReac Type Severity Reaction Status Date / Time hydrocodone bitartrate * AdvReac Nausea Verified 09/09/18 05:49 [From Vicodin] - Social History Does the pt smoke?: Yes Smoking Status: Current every day smoker Does the pt drink ETOH?: Yes Does the pt have substance abuse?: No - Immunizations Immunizations are current?: Yes - POLST Patient has POLST: No Results - Vitals Vitals: Vital Signs - 24 hr 09/09/18 09/09/18 05:44 07:44 Temperature 36.2 C L Heart Rate 114 H 104 H Respiratory 20 14 Rate Blood Pressure 140/110 H 120/97 H O2 Saturation 99 98 Oxygen O2 Source Room air - Labs Labs: Laboratory Tests 09/09/18 09/09/18 09/09/18 06:06 06:06 06:06 WBC 7.8 RBC 3.98 L Hgb 13.8 Hct 40.2 MCV 101.0 H MCH 34.6 H MCHC 34.3 RDW 12.8 Plt Count 215 MPV 9.0 Neut # (Auto) 4.9 Lymph # (Auto) 2.4 [place] # (Auto) 0.4 Eos # (Auto) 0.1 Baso # (Auto) 0.1 Absolute Nucleated RBC 0.01 Nucleated RBC % 0.1 Sodium 136 Potassium 3.4 L Chloride 104 Carbon Dioxide 22 Anion Gap 10.0 BUN 9 Creatinine 0.8 Estimated GFR (MDRD) 85 L Glucose 94 Calcium 8.9 Total Bilirubin 0.6 AST 26 ALT 20 Alkaline Phosphatase 55 Total Protein 7.9 Albumin 4.2 Globulin 3.7 Albumin/Globulin Ratio 1.1 Lipase 32 Serum HCG, Qual NEGATIVE Urine Color Urine Clarity Urine pH Ur Specific [place] Urine Protein Urine Glucose (UA) Urine Ketones Urine Occult Blood Urine Nitrite Urine Bilirubin Urine Urobilinogen Ur Leukocyte Esterase Ur Microscopic Review Urine Culture Comments Salicylates < 6.0 Urine Opiates Screen Ur Oxycodone Screen Urine Methadone Screen Ur Propoxyphene Screen Acetaminophen < 10 L Ur Barbiturates Screen Ur Tricyclics Screen Ur Phencyclidine Scrn Ur Amphetamine Screen U Methamphetamines Scrn U Benzodiazepines Scrn Urine Cocaine Screen U Cannabinoids Screen Ethyl Alcohol 287.7 09/09/18 06:55 WBC RBC Hgb Hct MCV MCH MCHC RDW Plt Count MPV Neut # (Auto) Lymph # (Auto) [place] # (Auto) Eos # (Auto) Baso # (Auto) Absolute Nucleated RBC Nucleated RBC % Sodium Potassium Chloride Carbon Dioxide Anion Gap BUN Creatinine Estimated GFR (MDRD) Glucose Calcium Total Bilirubin AST ALT Alkaline Phosphatase Total Protein Albumin Globulin Albumin/Globulin Ratio Lipase Serum HCG, Qual Urine Color YELLOW Urine Clarity CLEAR Urine pH 7.0 Ur Specific [place] 1.015 Urine Protein NEGATIVE Urine Glucose (UA) NEGATIVE Urine Ketones NEGATIVE Urine Occult Blood NEGATIVE Urine Nitrite NEGATIVE Urine Bilirubin NEGATIVE Urine Urobilinogen 0.2 (NORMAL) Ur Leukocyte Esterase NEGATIVE Ur Microscopic Review NOT INDICATED Urine Culture Comments NOT INDICATED Salicylates Urine Opiates Screen NEGATIVE Ur Oxycodone Screen NEGATIVE Urine Methadone Screen NEGATIVE Ur Propoxyphene Screen NEGATIVE Acetaminophen Ur Barbiturates Screen NEGATIVE Ur Tricyclics Screen NEGATIVE Ur Phencyclidine Scrn NEGATIVE Ur Amphetamine Screen NEGATIVE U Methamphetamines Scrn NEGATIVE U Benzodiazepines Scrn NEGATIVE Urine Cocaine Screen NEGATIVE U Cannabinoids Screen NEGATIVE Ethyl Alcohol - Rads (name of study) Cervical spine CT Radiology: Prelim report reviewed (Impression: No evidence of cervical spine fracture.), EMP read indepedently, See rad report CT head without Radiology: Prelim report reviewed (Impression: No evidence of acute intracranial process), EMP read indepedently, See rad report thoracic spine Radiology: Prelim report reviewed (Impression: Negative thoracic spine radiology.), EMP read indepedently, See rad report lumbar spine Radiology: Prelim report reviewed (Impression: Negative lumbar spine radiography.), EMP read indepedently, See rad report PD MEDICAL DECISION MAKING - ED course Complexity details: considered differential, d/w patient, d/w family ED course: 27-year-old female who was intoxicated and brought to the hospital by ambulance when a roommate reported she was having a seizure in the back of a car. The patient has no recollection of this or the details of what happened and she is not able to get a hold of her roommate this morning for confirmation. The patient seems maybe evasive about the situation. I have no confirmation that the patient actually had a seizure. Departure - Departure Disposition: 01 Home, Self Care Clinical Impression: Seizure, Intoxication Back pain Qualifiers: Back pain location: back pain in unspecified location Chronicity: acute Back pain laterality: unspecified Qualified Code(s): M54.9 - Dorsalgia, unspecified Condition: Stable Instructions: ED Seizure New Onset Unk Cause, ED Alcohol Intoxication Follow-Up: [facility] [Provider Group] Comments: Please follow-up with your primary care physician this coming week for recheck. Please asked for your primary care to arrange for an outpatient EEG to further assess your symptoms which occurred today. Please return to the emergency department any point for reevaluation for worsening symptoms or any concerns
[2018-09-09 11:44] VITALS: BP 132/88
== END 2018-09-09 11:43 | disposition home or self-care (01) ==
LOC: EDUNIT# → ED 05:42
DX: R56.9 Unspecified convulsions (principal); F10.920 Alcohol use, unspecified with intoxication, uncomplicated; R00.0 Tachycardia, unspecified; F17.200 Nicotine dependence, unspecified, uncomplicated; M54.5 Low back pain; M54.6 Pain in thoracic spine; M54.2 Cervicalgia
CPT/HCPCS: 36415; 70450; 72070; 72100; 72125; 80053; 80306; 80307; 80320; 80329; 81001; 81003; 83690; 84703; 85025; 87086; 93005; 96360; 96361; 99283; 99284

== ENCOUNTER 2019-04-28 03:52 | Emergency (ER) | payer MEDICAID ==
[2019-04-28 04:22] LABS: BASOPHILS # (AUTO) 0.1 10^3/uL (0.0-0.1); BASOPHILS % (AUTO) 0.8 %; EOSINOPHILS # (AUTO) 0.1 10^3/uL (0.0-0.7); EOSINOPHILS % (AUTO) 1.4 %; HGB - HEMOGLOBIN 14.6 g/dL (12.0-16.0); LYMPHOCYTES # (AUTO) 2.7 10^3/uL (1.5-3.5); LYMPHOCYTES % (AUTO) 37.6 %; MEAN CORPUSCULAR HEMOGLOBIN 33.6 pg (27.0-31.0); MEAN CORPUSCULAR HGB CONC 34.2 g/dL (32.0-36.0); MEAN CORPUSCULAR VOLUME 98.2 fL (81.0-99.0); MEAN PLATELET VOLUME 10.8 fL (7.9-10.8); MONOCYTES # (AUTO) 0.3 10^3/uL (0.0-1.0); MONOCYTES % (AUTO) 4.1 %; NEUTROPHILS % (AUTO) 55.8 %; PLT - PLATELET COUNT 250 10^3/uL (130-450); RED BLOOD COUNT 4.35 10^6/uL (4.20-5.40); RED CELL DISTRIBUTION WIDTH 12.3 % (12.0-15.0); WHITE BLOOD COUNT 7.1 x10^3/uL (4.8-10.8)
[2019-04-28 04:35] LABS: ALBUMIN 4.4 g/dL (3.2-5.5); ALBUMIN/GLOBULIN RATIO 1.2 (1.0-2.2); BILIRUBIN,TOTAL 0.5 mg/dL (0.2-1.0); CALCIUM 9.6 mg/dL (8.5-10.3); CREATININE 0.7 mg/dL (0.4-1.0); TOTAL PROTEIN 8.2 g/dL (6.7-8.2)
--- NOTE | 2019-04-28 05:15 | ED Physician Documentation ---
History of Present Illness - Stated complaint Stated Complaint: SZ? - Chief complaint Chief Complaint: Neuro - History obtained from History obtained from: Patient - History of Present Illness Timing: Today Pain level now: 0 Improved by: nothing (spontaneously resolved) - Additonal information Additional information: patient returned home after playing pool in local [employer]. she was walking up stairs at home when she had LOC, does not recall event. she says her BF described to her that she had LOC and stiffness (whole body) that lasted 1-2 minutes. she does not know how long it was before she was able to walk back to bedroom with boyfriends assistance (again due to amnestic for events), but she was told that she then fell to the floor and had another similar event of body stiffening, lasting less than a minute. she presents AAOx3 and in NAD. boyfriend was in ED earlier but not present by the time of this H+P. Patient says she had one similar episode in the past, T+R from this ED with suspected seizure. she says she contacted a neurologists office for f/u (would have been establishing visit), but she could not be seen for approximately 2 months and thus did not make appointment. Review of Systems Constitutional: reports: Reviewed and negative Eyes: reports: Reviewed and negative Cardiac: reports: Reviewed and negative Respiratory: reports: Reviewed and negative GI: reports: Reviewed and negative : denies: Now EGA Musculoskeletal: reports: Reviewed and negative Neurologic: reports: Seizure, Unresponsive, Head injury, LOC. denies: Generalized weakness, Focal weakness, Numbness, Difficulty speaking, Near syncope, Syncope, Confused, Altered mental status, Headache PD PAST MEDICAL HISTORY - Past Medical History Past Medical History: Yes Cardiovascular: None Respiratory: None Neuro: Seizure disorder Endocrine/Autoimmune: None GI: None CANT HOOKER: Endometriosis, Ovarian cysts : None HEENT: None Psych: None Musculoskeletal: None Derm: None - Past Surgical History Past Surgical History: Yes General: Colonoscopy /CANT HOOKER: Hysterectomy, Other - Present Medications Home Medications: Ambulatory Orders Medication Instructions Recorded Confirmed Cyclobenzaprine [Flexeril] 10 mg PO TID PRN #20 tablet 04/10/18 Ondansetron Odt [Zofran] 4 mg TL Q6H PRN #14 tablet 04/10/18 oxyCODONE/ACET 5/325 [Percocet 5 1 - 2 each PO Q6H PRN #14 tablet 04/10/ mg/325 mg] - Allergies Allergies/Adverse Reactions: Allergies Allergy/AdvReac Type Severity Reaction Status Date / Time hydrocodone bitartrate * AdvReac Nausea Verified 09/09/18 05:49 [From Vicodin] - Social History Does the pt smoke?: Yes Smoking Status: Current every day smoker Does the pt drink ETOH?: Yes Does the pt have substance abuse?: No - Immunizations Immunizations are current?: Yes - POLST Patient has POLST: No PD ED PE NORMAL - Vitals Vital signs reviewed: Yes - General General: Alert and oriented X 3, No acute distress, Well developed/nourished - HEENT HEENT: PERRL, EOMI, Moist mucous membranes - Neck Neck: Supple, no meningeal sign, No bony TTP - Cardiac Cardiac: No murmur - Respiratory Respiratory: No respiratory distress, Clear bilaterally - Extremities Extremities: No tenderness to palpate, Normal ROM s pain - Neuro 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, assembler motor vehicle 2-12 intact, No motor deficit, No sensory deficit, Normal speech Eye Opening: Spontaneous Motor: Obeys Commands Verbal: Oriented GCS Score: 15 - Psych Psych: Normal mood, Normal affect PD ED PE EXPANDED - HEENT HEENT Visual: 1 - bruising (faint erythema with minimal tenderness, no crepitus or deformity) 2 - swelling (mild lower lip swelling without laceration. no dental tenderness or laxity) - Cardiac Cardiac: Tachy, Regular Rhythm Results - Vitals Vitals: Oxygen O2 Source Room air - Labs Labs: Laboratory Tests 04/28/19 04/28/19 04/28/19 04:12 04:12 05:09 WBC 7.1 RBC 4.35 Hgb 14.6 Hct 42.7 MCV 98.2 MCH 33.6 H MCHC 34.2 RDW 12.3 Plt Count 250 MPV 10.8 Neut # (Auto) 4.0 Lymph # (Auto) 2.7 [place] # (Auto) 0.3 Eos # (Auto) 0.1 Baso # (Auto) 0.1 Absolute Nucleated RBC 0.00 Nucleated RBC % 0.0 Sodium 144 Potassium 4.3 Chloride 105 Carbon Dioxide 25 Anion Gap 14.0 H BUN 13 Creatinine 0.7 Estimated GFR (MDRD) 99 Glucose 100 Calcium 9.6 Total Bilirubin 0.5 AST 24 ALT 21 Alkaline Phosphatase 49 Total Protein 8.2 Albumin 4.4 Globulin 3.8 Albumin/Globulin Ratio 1.2 Lipase 38 Urine Color Urine Clarity Urine pH Ur Specific [place] Urine Protein Urine Glucose (UA) Urine Ketones Urine Occult Blood Urine Nitrite Urine Bilirubin Urine Urobilinogen Ur Leukocyte Esterase Ur Microscopic Review Urine Culture Comments Urine HCG, Qual Urine Opiates Screen NEGATIVE Ur Oxycodone Screen NEGATIVE Urine Methadone Screen NEGATIVE Ur Propoxyphene Screen NEGATIVE Ur Barbiturates Screen NEGATIVE Ur Tricyclics Screen NEGATIVE Ur Phencyclidine Scrn NEGATIVE Ur Amphetamine Screen NEGATIVE U Methamphetamines Scrn NEGATIVE U Benzodiazepines Scrn NEGATIVE Urine Cocaine Screen NEGATIVE U Cannabinoids Screen NEGATIVE Ethyl Alcohol 224.5 04/28/19 05:09 WBC RBC Hgb Hct MCV MCH MCHC RDW Plt Count MPV Neut # (Auto) Lymph # (Auto) [place] # (Auto) Eos # (Auto) Baso # (Auto) Absolute Nucleated RBC Nucleated RBC % Sodium Potassium Chloride Carbon Dioxide Anion Gap BUN Creatinine Estimated GFR (MDRD) Glucose Calcium Total Bilirubin AST ALT Alkaline Phosphatase Total Protein Albumin Globulin Albumin/Globulin Ratio Lipase Urine Color YELLOW Urine Clarity CLEAR Urine pH 6.0 Ur Specific [place] 1.015 Urine Protein NEGATIVE Urine Glucose (UA) NEGATIVE Urine Ketones NEGATIVE Urine Occult Blood TRACE-LYSE Urine Nitrite NEGATIVE Urine Bilirubin NEGATIVE Urine Urobilinogen 0.2 (NORMAL) Ur Leukocyte Esterase NEGATIVE Ur Microscopic Review NOT INDICATED Urine Culture Comments NOT INDICATED Urine HCG, Qual NEGATIVE Urine Opiates Screen Ur Oxycodone Screen Urine Methadone Screen Ur Propoxyphene Screen Ur Barbiturates Screen Ur Tricyclics Screen Ur Phencyclidine Scrn Ur Amphetamine Screen U Methamphetamines Scrn U Benzodiazepines Scrn Urine Cocaine Screen U Cannabinoids Screen Ethyl Alcohol PD MEDICAL DECISION MAKING - ED course Complexity details: reviewed old records, reviewed results, re-evaluated patient, considered differential, d/w patient ED course: seizure vs. syncope. she is in NAD during ED stay with normal neurologic exam. discussed option of starting her on AED which she declines. I emphasized the need for f/u with neurology, as she might need further testing such as EEG Departure - Departure Disposition: Home, Self Care Clinical Impression: Seizure Condition: Good Instructions: ED Seizure New Onset Unk Cause Comments: You need to follow up with a neurologist. Contact your primary care provider's office to request a referral; you might be instructed to see your primary care provider to get the referral. Discharge Date/Time: 04/28/19 08:29
[2019-04-28 05:18] LABS: MUDS CUTOFF CONCENTRATIONS CUTOFF CONC BELOW:
[2019-04-28 05:20] LABS: BILIRUBIN,URINE NEGATIVE (NEGATIVE); GLUCOSE, URINE (UA) NEGATIVE (NEGATIVE); KETONES,URINE (UA) NEGATIVE (NEGATIVE); LEUKOCYTE ESTERASE, URINE NEGATIVE (NEGATIVE); NITRITE,URINE NEGATIVE (NEGATIVE); OCCULT BLOOD,URINE TRACE-LYSE (NEGATIVE); PROTEIN,URINE NEGATIVE (NEGATIVE); UROBILINOGEN,URINE 0.2 (NORMAL) E.U./dL (NORMAL)
[2019-04-28 05:22] LABS: CLARITY,URINE CLEAR (CLEAR); HCG UR QUAL NEGATIVE
[2019-04-28 05:30] LABS: AMPHETAMINE SCREEN,URINE NEGATIVE (NEGATIVE); BENZODIAZEPINES SCREEN, URINE NEGATIVE (NEGATIVE); COCAINE SCREEN URINE NEGATIVE (NEGATIVE); METHADONE SCREEN, URINE NEGATIVE (NEGATIVE); METHAMPHETAMINES SCREEN, URINE NEGATIVE (NEGATIVE); OPIATE SCREEN, URINE NEGATIVE (NEGATIVE); OXYCODONE SCREEN, URINE NEGATIVE (NEGATIVE); PROPOXYPHENE SCREEN, URINE NEGATIVE (NEGATIVE); TRICYCLIC ANTIDEPRESSANT,URINE NEGATIVE (NEGATIVE)
[2019-04-28] MEDS ORDERED: SODIUM CHLORIDE 0.9% 1,000 ML IV STA (05:47)
[2019-04-28 08:25] VITALS: BP 131/95
== END 2019-04-28 08:29 | disposition home or self-care (01) ==
LOC: ED 03:52
DX: R56.9 Unspecified convulsions (principal); F17.200 Nicotine dependence, unspecified, uncomplicated; S00.531A Contusion of lip, initial encounter; X58.XXXA Exposure to other specified factors, initial encounter
CPT/HCPCS: 36415; 80053; 80306; 80320; 81001; 81003; 81025; 83690; 85025; 87086; 96360; 99284

== ENCOUNTER 2021-05-27 16:32 | Emergency (ER) | payer MEDICAID ==
[2021-05-27] MEDS ORDERED: ALBUTEROL 1 PUFF INH STA (17:32)
--- NOTE | 2021-05-27 17:34 | ED Physician Documentation ---
History of Present Illness - Stated complaint Stated Complaint: CHEST CONGESTION - Chief complaint Chief Complaint: Resp - Additonal information Additional information: 30-year-old female presents emergency department for evaluation of cough, congestion, fatigue and myalgias that is been present for about 1 week. She is a daily tobacco user. She denies any history however of COPD, emphysema chronic bronchitis asthma, diabetes or high blood pressure. She has not yet vaccinated for COVID-19. Review of Systems Constitutional: reports: Chills, Myalgias, Fatigue. denies: Fever Eyes: reports: Reviewed and negative Ears: reports: Reviewed and negative Nose: reports: Reviewed and negative Throat: reports: Reviewed and negative Cardiac: reports: Reviewed and negative Respiratory: reports: Cough, Wheezing. 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: Endometriosis, Ovarian cysts : None HEENT: None Psych: None Musculoskeletal: None Derm: None - Past Surgical History Past Surgical History: Yes General: Colonoscopy /SINGLE POINTED OPERATOR: Hysterectomy, Other - Present Medications Home Medications: Ambulatory Orders Medication Instructions Recorded Confirmed Tobramycin/Dexamethasone [Tobradex 1 drops OP QID #1 drops.susp 02/24/20 Eye Drops] cephALEXin [Keflex] 500 mg PO Q6H #28 capsule 02/24/20 Albuterol Sulf [Ventolin Hfa 1 - 2 puffs INH Q4HR PRN #1 inhaler 05/27/21 Inhaler] Benzonatate [Tessalon] 100 mg PO TID PRN #30 cap 05/27/21 - Allergies Allergies/Adverse Reactions: Allergies Allergy/AdvReac Type Severity Reaction Status Date / Time hydrocodone bitartrate * AdvReac Nausea Verified 05/27/21 16:37 [From Vicodin] - Social History Does the pt smoke?: Yes Smoking Status: Current every day smoker Does the pt drink ETOH?: Yes Does the pt have substance abuse?: No - Immunizations Immunizations are current?: Yes - POLST Patient has POLST: No PD ED PE NORMAL - General General: Alert and oriented X 3, No acute distress - HEENT HEENT: PERRL - Neck Neck: Supple, no meningeal sign - Cardiac Cardiac: RRR, No murmur - Respiratory Respiratory: No respiratory distress, Other (Faint scattered expiratory wheezes. No rhonchi rales or crackles. Good cardiopulmonary excursion.) - Abdomen Abdomen: Normal bowel sounds, Soft, Non tender, Non distended - Back Back: No CVA TTP, No spinal TTP - Derm Derm: Normal color, Warm and dry, No rash - Extremities Extremities: No deformity - Neuro 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 Eye Opening: Spontaneous Motor: Obeys Commands Verbal: Oriented GCS Score: 15 Results - Vitals Vitals: Vital Signs - 24 hr 05/27/21 16:37 Temperature 36.4 C L Heart Rate 104 H Respiratory 22 Rate Blood Pressure 179/139 H O2 Saturation 98 Oxygen O2 Source Room air - Labs Labs: Laboratory Tests 05/27/21 17:36 Nasal Adenovirus (PCR) NOT DETECTED Nasal B. parapertussis DNA (PCR) NOT DETECTED Nasal Coronavir 229E PCR NOT DETECTED Nasal Coronavir HKU1 PCR NOT DETECTED Nasal Coronavir NL63 PCR NOT DETECTED Nasal Coronavir OC43 PCR NOT DETECTED Nasal Enterovir/Rhinovir PCR NOT DETECTED Nasal Influenza B PCR NOT DETECTED Nasal Influenza A PCR NOT DETECTED Nasal Parainfluen 1 PCR NOT DETECTED Nasal Parainfluen 2 PCR NOT DETECTED Nasal Parainfluen 3 PCR NOT DETECTED Nasal Parainfluen 4 PCR NOT DETECTED Nasal RSV (PCR) NOT DETECTED Nasal B.pertussis DNA PCR NOT DETECTED Nasal C.pneumoniae (PCR) NOT DETECTED Joshua Human Metapneumo PCR NOT DETECTED Nasal M.pneumoniae (PCR) NOT DETECTED Nasal SARS-CoV-2 (PCR) NOT DETECTED - Rads (name of study) CXR Radiology: Final report received (No acute cardiopulmonary process.) PD MEDICAL DECISION MAKING - ED course Complexity details: reviewed results, re-evaluated patient, d/w patient ED course: 30-year-old female who is not yet vaccinated for COVID-19 presents the emergency department with 5 to 6 days of cough myalgias chills and generalized fatigue. She is a daily tobacco user. No hypoxia on room air. On cardiopulmonary auscultation she did have generalized scattered expiratory wheezes. This fully resolved using albuterol MDI. Respiratory PCR today is negative for COVID-19. Chest x-ray is without acute focal opacities. Discussed PCR findings with the patient. She is encouraged at this time to obtain COVID-19 vaccine. She feels markedly better after the albuterol MDI thus I will prescribe albuterol on discharge. Will defer any antibiotics given lack of fever or focal opacity on chest x-ray. Advised rest fluids. Emergent return precautions otherwise discussed. Departure - Departure Disposition: 01 Home, Self Care Clinical Impression: Wheeze Upper respiratory infection Qualifiers: URI type: unspecified viral URI Qualified Code(s): J06.9 - Acute upper respiratory infection, unspecified Condition: Stable Record reviewed to determine appropriate education?: Yes Instructions: ED Bronchitis Asthmatic Follow-Up: Provider,Other [Primary Care Provider] - Prescriptions: Albuterol Sulf [Ventolin Hfa Inhaler] 1 - 2 puffs INH Q4HR PRN #1 inhaler PRN Reason: Shortness Of Air/Wheezing Benzonatate [Tessalon] 100 mg PO TID PRN #30 cap PRN Reason: Cough Comments: Keirsten you are seen in the emergency department today for cough chills fatigue. Your chest x-ray is unremarkable. There is no pneumonia. Your COVID- 19 test today is negative. Your symptoms improved after receiving albuterol here in the emergency department. I have sent prescription for albuterol to the [facility] in [place]. I recommend that you use this 4-6 times a day for the next few days. With most viral upper respiratory infections cough and congestion will begin to get better after 7 to 10 days. If your symptoms are not better after 2 weeks, you have fevers higher than 102 or difficulty breathing please return immediately to the ER for second evaluation. I do encourage you to obtain the COVID-19 vaccine as soon as you are able.
--- NOTE | 2021-05-27 17:52 | XRAY Report ---
PROCEDURE: Chest 1 View X-Ray INDICATIONS: cough TECHNIQUE: One view of the chest was acquired. COMPARISON: 09/26/2019 FINDINGS: Surgical changes and devices: None. Lungs and pleura: No pleural effusions or pneumothorax. Lungs are clear. Mediastinum: Mediastinal contours appear normal. Heart size is normal. Bones and chest wall: No suspicious bony lesions. Overlying soft tissues appear unremarkable. IMPRESSION: No acute cardiopulmonary disease process. Reviewed by: Viridiana Pryor MD, PhD on 05/27/2021 4:51 PM [facility] Approved by: Viridiana Pryor MD, PhD on 05/27/2021 4:51 PM AKDT Station ID: [id number]
[2021-05-27 18:47] LABS: B. PARAPERTUSSIS- RESP PCR PAN NOT DETECTED; B. PERTUSSIS- RESP PCR PANEL NOT DETECTED; C. PNEUMONIAE- RESP PCR PANEL NOT DETECTED; CORONAVIRUS 229E-RESP PCR NOT DETECTED; CORONAVIRUS HKU1-RESP PCR NOT DETECTED; CORONAVIRUS NL63-RESP PCR NOT DETECTED; CORONAVIRUS OC43-RESP PCR NOT DETECTED; HUMAN METAPNEUMOVIRUS NOT DETECTED; INFLUENZA A- RESP PCR PANEL NOT DETECTED; INFLUENZA B - RESP PCR PANEL NOT DETECTED; M. PNEUMONIAE- RESP PCR PANEL NOT DETECTED; PARAINFLUENZA VIRUS 1 NOT DETECTED; PARAINFLUENZA VIRUS 2 NOT DETECTED; PARAINFLUENZA VIRUS 3 NOT DETECTED; PARAINFLUENZA VIRUS 4 NOT DETECTED; RHINOVIRUS/ENTEROVIRUS NOT DETECTED; RSV- RESP PCR PANEL NOT DETECTED; SARS-CoV-2 -RESP PCR PANEL NOT DETECTED
[2021-05-27 19:38] VITALS: BP 171/117
== END 2021-05-27 19:44 | disposition home or self-care (01) ==
LOC: ED 16:32
DX: J06.9 Acute upper respiratory infection, unspecified (principal); Z72.0 Tobacco use; Z20.822 Contact with and (suspected) exposure to COVID-19; R06.2 Wheezing
CPT/HCPCS: 0202U; 71045; 94640; 99283; 99284

== ENCOUNTER 2022-09-05 01:40 | Emergency (ER) | payer MEDICAID ==
[2022-09-05] MEDS ORDERED: AMOXICILLIN 250 MG CAPSULE PO STA (01:52)
[2022-09-05] MEDS ORDERED: ONDANSETRON ODT 4 MG TABLET TL STA (01:52)
[2022-09-05 01:53] VITALS: BP 148/111
[2022-09-05] MEDS ORDERED: traMADol 50 MG TABLET PO STA (01:53)
--- NOTE | 2022-09-05 01:55 | ED Physician Documentation ---
PD HPI HEENT - Stated complaint Stated Complaint: LT FACIAL SWELLING - Chief complaint Chief Complaint: Heent - History obtained from History obtained from: Patient - Additional information Additional information: The patient comes to the emergency department chief complaint of left facial swelling that she just noticed starting a couple hours ago. The patient has a left maxillary molar that has really been bothering her and is quite decayed, when she believes this is the source. She states she started to notice it hurting yesterday. She denies fevers or chills. No difficulty swallowing or se nse of fullness in her neck. No drainage into her mouth. She states it does hurt to chew. No other complaints at this time. PD PAST MEDICAL HISTORY - Past Medical History Cardiovascular: None Respiratory: None Neuro: Seizure disorder Endocrine/Autoimmune: None GI: None BASEBALL GLOVE SHAPER: Endometriosis, Ovarian cysts : None HEENT: None Psych: None Musculoskeletal: None Derm: None - Past Surgical History Past Surgical History: Yes General: Colonoscopy /BASEBALL GLOVE SHAPER: Hysterectomy, Other - Present Medications Home Medications: Ambulatory Orders Medication Instructions Recorded Confirmed Albuterol Sulf [Ventolin Hfa 1 - 2 puffs INH Q4HR PRN #1 inhaler 05/27/21 09/05/22 Inhaler] Amoxicillin 500 mg PO TID 7 Days #21 cap 09/05/22 Ondansetron Odt [Zofran Odt] 4 mg PO Q6HR PRN 09/05/22 09/05/22 - Allergies Allergies/Adverse Reactions: Allergies Allergy/AdvReac Type Severity Reaction Status Date / Time hydrocodone bitartrate * AdvReac Nausea Verified 09/05/22 01:53 [From Vicodin] - Social History Does the pt smoke?: Yes Smoking Status: Current every day smoker Does the pt drink ETOH?: Yes Does the pt have substance abuse?: No - Immunizations Immunizations are current?: Yes - POLST Patient has POLST: No PD ED PE NORMAL - Vitals Vital signs reviewed: Yes - General General: Alert and oriented X 3, No acute distress, Well developed/nourished - HEENT HEENT: Atraumatic, PERRL, EOMI, Moist mucous membranes, Other (Moderately poor dentition, with severely decayed left first maxillary molar. Moderate left maxillary soft tissue swelling without distinct palpable abscess. Mild gingival edema) - Neck Neck: Supple, no meningeal sign, No adenopathy - Derm Derm: Normal color, Warm and dry, No rash - Extremities Extremities: No deformity - Neuro Neuro: Other (Grossly intact) - Psych Psych: Normal mood, Normal affect Results - Vitals Vitals: Vital Signs - 24 hr 09/05/22 01:40 Temperature 37.2 C Heart Rate 106 H Respiratory 18 Rate Blood Pressure 148/111 H O2 Saturation 99 Oxygen O2 Source Room air PD Medical Decision Making - ED course Complexity details: considered differential, d/w patient ED course: I discussed with the patient that she will need to see a dentist to soon as possible to discuss definitive management of her dental decay but in the meantime, I will place her on amoxicillin. I have also given her analgesia and an antiemetic in the emergency department and have prescribed all of the above for her for at home, as well. We have discussed the usual indications for return Departure - Departure Disposition: 01 Home, Self Care Clinical Impression: Dental infection Condition: Stable Instructions: ED Abscess Tooth Prescriptions: Amoxicillin 500 mg PO TID 7 Days #21 cap Comments: You have an infected tooth, which is causing the swelling of your face. There is no evidence of a distinct pus collection in the soft tissues of your cheek, and most likely, the swelling is just due to inflamed flesh from the infection. As such, you should begin to notice the swelling going down over the next few days as you take the antibiotics. You have been given your first dose of antibiotics here in the emergency department, along with a medication for pain. You should not drive for the next 6 hours after having received the pain medication. The remainder of your medications, including antibiotics, pain medication, and nausea medication, have been prescribed and electronically transmitted to the [facility] pharmacy in [place] at your request. Please pick these medications up this morning so that you can continue your antibiotic course unbroken. Please call your dentist's office this morning to make the next available appointment to be seen. Discharge Date/Time: 09/05/22 02:13
== END 2022-09-05 02:13 | disposition home or self-care (01) ==
LOC: ED 01:40
DX: K04.7 Periapical abscess without sinus (principal); G40.909 Epilepsy, unspecified, not intractable, without status epilepticus; F17.200 Nicotine dependence, unspecified, uncomplicated
CPT/HCPCS: 99282; 99283; A9270; Q0162

== ENCOUNTER 2023-08-16 07:05 | Outpatient (CLI) | payer MEDICAID ==
[2023-08-16 12:35] LABS: ESTIMATED AVERAGE GLUCOSE 80 mg/dL (70-100); HEMOGLOBIN A1c% 4.4 % (4.27-6.07)
[2023-08-16 12:42] LABS: BASOPHILS % (AUTO) 0.6 %; EOSINOPHILS # (AUTO) 0.1 10^3/uL (0.0-0.7); HGB - HEMOGLOBIN 13.9 g/dL (12.0-16.0); LYMPHOCYTES # (AUTO) 2.9 10^3/uL (1.5-3.5); MEAN CORPUSCULAR HEMOGLOBIN 33.4 pg (27.0-31.0); MEAN CORPUSCULAR HGB CONC 32.3 g/dL (32.0-36.0); MEAN CORPUSCULAR VOLUME 103.4 fL (81.0-99.0); MEAN PLATELET VOLUME 11.9 fL (7.9-10.8); MONOCYTES # (AUTO) 0.4 10^3/uL (0.0-1.0); NEUTROPHILS # (AUTO) 2.9 10^3/uL (1.5-6.6); NEUTROPHILS % (AUTO) 46.2 %; PLT - PLATELET COUNT 268 10^3/uL (130-450); RED BLOOD COUNT 4.16 10^6/uL (4.20-5.40); RED CELL DISTRIBUTION WIDTH 12.3 % (12.0-15.0); WHITE BLOOD COUNT 6.4 x10^3/uL (4.8-10.8)
[2023-08-16 12:55] LABS: ALBUMIN 4.3 g/dL (3.2-5.5); ALBUMIN/GLOBULIN RATIO 1.4 (1.0-2.2); ALKALINE PHOSPHATASE 55 IU/L (42-121); ALT ALANINE AMINOTRANSFERASE 23 IU/L (10-60); AST ASPARTATE AMINOTRANSFERASE 18 IU/L (10-42); BILIRUBIN,TOTAL 0.7 mg/dL (0.2-1.0); BUN - BLOOD UREA NITROGEN 15 mg/dL (6-20); CALCIUM 9.5 mg/dL (8.5-10.3); CARBON DIOXIDE - CO2 27 mmol/L (21-32); CHLORIDE 103 mmol/L (101-111); CHOL/HDL RATIO 3.4 (<4.4); CHOLESTEROL 229 mg/dL; CREATININE 0.6 mg/dL (0.6-1.3); GFR - MDRD 115 (>89); GLUCOSE 93 mg/dL (74-104); HDL CHOLESTEROL 68 mg/dL; LDL CHOLESTEROL,CALCULATED 137 mg/dL; POTASSIUM 3.7 mmol/L (3.5-4.5); SODIUM 136 mmol/L (135-145); TOTAL PROTEIN 7.4 g/dL (6.4-8.9); TRIGLYCERIDES 120 mg/dL (48-352); VLDL CHOLESTEROL 24 mg/dL
[2023-08-16 13:14] LABS: THYROID STIMULATING HORMONE 0.76 uIU/mL (0.34-5.60)
== END 2023-08-16 07:06 | disposition home or self-care (01) ==
LOC: LAB.N 07:05
PROVIDERS: ATTEND Nurse Practitioner Family
DX: I10 Essential (primary) hypertension (principal); E66.9 Obesity, unspecified
CPT/HCPCS: 36415; 80053; 80061; 83036; 83721; 84443; 85025

== ENCOUNTER 2023-08-31 07:42 | Outpatient (CLI) | payer MEDICAID ==
--- NOTE | 2023-08-31 10:32 | Mammography Report ---
BILATERAL DIGITAL DIAGNOSTIC MAMMOGRAM 3D/2D WITH SPOT COMPRESSION: 08/31/2023 CLINICAL: Baseline exam. Palpable left breast lump. No prior exams were available for comparison. Both breasts are extremely dense, which lowers the sensitivity of mammography (category d />75% gland ular tissue). There is a cluster of focal asymmetries in the right breast at 9 o'clock posterior depth. There is a 5 cm mass in the left breast at 1 o'clock posterior depth. This correlates as palpated. No other significant masses or calcifications are seen in either breast. IMPRESSION: INCOMPLETE: NEEDS ADDITIONAL IMAGING EVALUATION The cluster of focal asymmetries in the right breast at 9 o'clock posterior depth is indeterminate. An ultrasound is recommended. The 5 cm mass in the left breast at 1 o'clock posterior depth is indeterminate. An ultrasound is rec ommended. This correlates as palpated, possibly growing per patient. Based on the Tyrer Cuzick model (a risk assessment model) the patient's lifetime risk is 17.7% and he r 10 year risk is 1.1%. According to the ACR, ACS, and NCCN guidelines, an annual breast MRI exam tanner ng with mammogram is recommended if the patient's lifetime risk is 20% or greater. This exam was interpreted at Station ID: [id number]. NOTE: For mammograms, a report in lay terms will be sent to the patient. Approximately 15% of breast malignancies will not be visualized mammographically. In the management of a palpable breast mass, a negative mammogram must not discourage biopsy of a clinically suspicious lesion. Electronically Signed By: Julio Mosher M.D. lc/:08/31/2023 09:34:33 ACR BI-RADS Category 0: Incomplete 3340F PARENCHYMAL PATTERN: (VD) - The breast(s) demonstrate(s) extremely dense parenchyma, limiting the sen sitivity of mammography. BI-RADS CATEGORY: (0) - 0 Ultrasound [id number] Immediate follow-up LATERALITY: (B)
--- NOTE | 2023-08-31 10:32 | Ultrasound Report ---
LIMITED ULTRASOUND OF RIGHT BREAST: 08/31/2023 CLINICAL: Patient returns today to evaluate an asymmetry in the right breast. Comparison is made to exams dated: 08/31/2023 ultrasound and 08/31/2023 mammogram - [facility]. Color flow and real-time ultrasound of the right breast 8-10 o'clock region were performed. Linton sca le images of the real-time examination were reviewed. No significant abnormalities were seen sonographically in the right breast. IMPRESSION: PROBABLY BENIGN There is no abnormality seen in the right breast to correspond with the mammography finding. A follow-up mammogram in 6 months is recommended to demonstrate stability for the cluster of focal as ymmetries. This exam was interpreted at Station ID: [id number]. Electronically Signed By: Julio Mosher M.D. lc/:08/31/2023 09:35:55 Ultrasound BI-RADS: 3 Probably benign BI-RADS CATEGORY: (3) - 3 Mammogram [id number] 6 month follow-up LATERALITY: (B)
--- NOTE | 2023-08-31 10:32 | Ultrasound Report ---
LIMITED ULTRASOUND OF LEFT BREAST AND AXILLA: 08/31/2023 CLINICAL: Palpable left breast lump. Comparison is made to exam dated: 08/31/2023 mammogram - [facility]. Color flow and real-time ultrasound of the left breast 2-3 o'clock, and axilla regions were performe d. Linton scale images of the real-time examination were reviewed. There is a 4.5 cm x 6.2 cm x 3.6 cm oval mass with a circumscribed margin in the left breast at 2 o'c lock posterior depth 9 cm from the nipple. This correlates as palpated and with mammography findings . There also is a 2 cm enlarged lymph node in the left axilla with normal hilum and thin cortex. IMPRESSION: SUSPICIOUS OF MALIGNANCY The 4.5 cm x 6.2 cm x 3.6 cm oval mass in the left breast at 2 o'clock posterior depth is suspicious of malignancy. An ultrasound guided biopsy is recommended. This could be a fibroadenoma or phyllode s tumor. The 2 cm enlarged lymph node in the left axilla is probably benign, with large hilum and thin cortex. Defer management until after biopsy results return. If intervention not pursued, a follow-up ultraso und in 6 months is recommended. This exam was interpreted at Station ID: [id number]. Electronically Signed By: Julio Mosher M.D. lc/:08/31/2023 09:39:00 Ultrasound BI-RADS: 4 Suspicious for malignancy BI-RADS CATEGORY: (4) - 4 Biopsy follow-up [id number] Immediate follow-up LATERALITY: (B)
== END 2023-08-31 07:43 | disposition home or self-care (01) ==
LOC: DI 07:42
PROVIDERS: ATTEND Nurse Practitioner Family
DX: N63.21 Unspecified lump in the left breast, upper outer quadrant (principal); E04.1 Nontoxic single thyroid nodule; R92.30 Dense breasts, unspecified; R59.0 Localized enlarged lymph nodes; R92.8 Other abnormal and inconclusive findings on diagnostic imaging of breast

== ENCOUNTER 2023-08-31 07:43 | Outpatient (CLI) | payer MEDICAID ==
--- NOTE | 2023-08-31 11:06 | Ultrasound Report ---
PROCEDURE: Soft Tissue Head or Neck INDICATIONS: ENLARGED THYROID TECHNIQUE: Real-time scanning was performed of the thyroid gland, with image documentation. COMPARISON: None FINDINGS: Right: Thyroid lobe measures 5.7 x 2.8 x 2.6 cm, and is homogeneous in echotexture. Left: Thyroid lobe measures 5.4 x 1.6 x 1.3 cm, and is homogenous in echotexture. Isthmus: 0.3 cm thick. Nodule number: One Location: Right thyroid Size: 2.9 x 1.8 x 2.0 cm. Composition: Mixed cystic and solid (1 point). Echogenicity: Hypoechoic (2 points). Shape: wider than tall (0 points). Margins: Smooth (0 points). Echogenic foci: None (0 points). Total points: 3 ACR TI-RADS category: TI-RADS 3: Mildly suspicious. IMPRESSION: Mildly suspicious 2.9 cm right thyroid nodule. Recommend ultrasound-guided fine-needle a spiration for further evaluation based on guidelines provided below. ACR TI-RADS definitions and recommendations: TI-RADS 1 (benign): 0 points. FNA not needed. TI-RADS 2 (not suspicious): 2 points. FNA not needed. TI-RADS 3 (mildly suspicious): 3 points. "FNA if 2.5 cm or larger, follow up if 1.5 cm or larger (at 1, 3, and 5 years). TI-RADS 4 (moderately suspicious): 4-6 points. "FNA if 1.5 cm or larger, follow up if 1 cm or larger (at 1, 2, 3, and 5 years). TI-RADS 5 (highly suspicious): 7 points or more. "FNA if 1 cm or larger, follow up if 0.5 cm or larger (every year for 5 years). Reviewed by: Eliu Braxton MD on 08/31/2023 11:05 AM PST Approved by: Eliu Braxton MD on 08/31/2023 11:05 AM PST Station ID: [id number]
== END 2023-08-31 07:44 | disposition home or self-care (01) ==
LOC: DI 07:43
PROVIDERS: ATTEND Nurse Practitioner Family
DX: E04.1 Nontoxic single thyroid nodule (principal)

== ENCOUNTER 2023-09-08 09:43 | Outpatient (CLI) | payer BC, MEDICAID ==
[2023-09-08] MEDS ORDERED: LIDOCAINE 1%-EPI 1:100000 50 ML VIAL ONE (10:11)
[2023-09-08] MEDS ORDERED: LIDOCAINE-MPF 1% 5 ML VIAL ONE (10:12)
[2023-09-08] MEDS: LIDOCAINE-MPF 1% 5 ML VIAL TD ONE (17:50)
[2023-09-08] MEDS: LIDOCAINE 1%-EPI 1:100000 50 ML VIAL SUBQ SCH (17:52)
[2023-09-08] MEDS ORDERED: LIDOCAINE 1%-EPI 1:100000 50 ML VIAL SUBQ ONE (18:00)
--- NOTE | 2023-09-11 10:31 | Mammography Report ---
UNILATERAL LEFT DIGITAL DIAGNOSTIC MAMMOGRAM - LEFT BREAST POST-PROCEDURE IMAGING FOR MARKER PLACEMEN CLINICAL: Post left breast ultrasound biopsy clip placement imaging. No prior exams were available for comparison. The left breast is extremely dense, which lowers the sensitivity of mammography (category d />75% gla ndular tissue). There is a biopsy clip in the left breast at the biopsy site. IMPRESSION: POST PROCEDURE MAMMOGRAM FOR MARKER PLACEMENT A biopsy clip at the biopsy site. Based on the Tyrer Cuzick model (a risk assessment model) the patient's lifetime risk is 17.7% and he r 10 year risk is 1.1%. According to the ACR, ACS, and NCCN guidelines, an annual breast MRI exam tanner ng with mammogram is recommended if the patient's lifetime risk is 20% or greater. This exam was interpreted at Station ID: [id number]. NOTE: For mammograms, a report in lay terms will be sent to the patient. Approximately 15% of breast malignancies will not be visualized mammographically. In the management of a palpable breast mass, a negative mammogram must not discourage biopsy of a clinically suspicious lesion. Electronically Signed By: Joanna Wren M.D. fx/:09/11/2023 08:49:53 ACR BI-RADS Category Post-procedure mammogram for marker placement PARENCHYMAL PATTERN: (VD) - The breast(s) demonstrate(s) extremely dense parenchyma, limiting the sen sitivity of mammography. BI-RADS CATEGORY: () - Unspecified - other recall n/a LATERALITY: (B)
--- NOTE | 2023-09-11 14:14 | Ultrasound Report ---
ULTRASOUND GUIDED BIOPSY LEFT BREAST USING VACUUM DEVICE WITH POST MAMMOGRAPHIC AND ULTRASOUND IMAGIN 09/08/2023 CLINICAL: Left breast mass. PATIENT CONSENT: Risks (minor bleeding, infection, vasovagal reaction and repeat procedure), benefits and alternatives were explained to the patient and written informed consent was obtained. Correlation is made to exams dated: 08/31/2023 ultrasound and 08/31/2023 mammogram - [facility]. An ultrasound guided biopsy using real-time ultrasound was performed for the oval mass located in the left breast at 2 o'clock posterior depth. This was described on the previous ultrasound report. Th e skin was prepped in the usual manner. Local anesthetic was administered to the access site. The a bnormality was approached from the lateral aspect. A 14 gauge biopsy needle was placed adjacent to t he abnormality under ultrasound guidance. Once the needle was documented to be in the correct locati on, five specimens were obtained using the Mammotome biopsy system. Post procedure mammographic and ultrasound imaging demonstrates the clip at the targeted area. The specimens were sent to the [facility] for pathological analysis. IMPRESSION: ULTRASOUND GUIDED BIOPSY BENIGN Ultrasound guided biopsy of the mass in the left breast posterior depth was successful. 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 Pathology results are concordant with imaging findings, however, p hyllodes tumor is possible given large size with limited needle biopsy. Given size and possible growt h per patient, consider surgical excision. This exam was interpreted at Station ID: [id number]. Joanna Mosher M.D. fx,lc/:09/11/2023 12:42:10 BI-RADS CATEGORY: () - Unspecified - other recall n/a LATERALITY: (B)
== END 2023-09-08 09:44 | disposition home or self-care (01) ==
LOC: DI 09:43
PROVIDERS: ATTEND Nurse Practitioner Family
DX: D24.2 Benign neoplasm of left breast (principal)
CPT/HCPCS: 19083; 77065; J3490

== ENCOUNTER 2023-09-14 09:50 | Outpatient (CLI) | payer BC ==
[~2023-09-14 09:50] MED LIST: LIDOCAINE-MPF 1% 5 ML VIAL ONE
[2023-09-14] MEDS: LIDOCAINE-MPF 1% 5 ML VIAL TD ONE (11:51)
--- NOTE | 2023-09-14 14:11 | Ultrasound Report ---
PROCEDURE: FNA Bx w/US Gdn 1st Les INDICATIONS: THYROID NODULE TECHNIQUE: The indications, alternatives, benefits, risks, and complications of the procedure were explained to the patient. Written informed consent was obtained and placed in the chart. The area of interest wa s examined sonographically and a site was chosen for ultrasound guided percutaneous sampling. The sk in was prepared and draped in the usual fashion, and anesthetized with 1% lidocaine infiltrated from the skin down to the lesion. Multiple passes were then performed, with contents emptied into an appr [facility] pathology specimen container. A bandage was applied to the area of access at completion of t he study. COMPARISON: Thyroid ultrasound 08/31/2023. FINDINGS: Location(s) of lesion(s) sampled: Right thyroid nodule [place]: 25 gauge hypodermic needles. Number of passes: 6 Medications: 1% lidocaine for local anaesthesia. Complications: None. IMPRESSION: Successful ultrasound-guided right thyroid nodule fine needle aspiration, with cytology results pendradha ruiz. Reviewed by: Patricia Pickard MD on 09/14/2023 2:09 PM PST Approved by: Patricia Pickard MD on 09/14/2023 2:09 PM PST Station ID: [id number]
== END 2023-09-14 09:51 | disposition home or self-care (01) ==
LOC: DI 09:50
PROVIDERS: ATTEND Nurse Practitioner Family
DX: E04.1 Nontoxic single thyroid nodule (principal)
CPT/HCPCS: 10005

== ENCOUNTER 2023-10-30 06:20 | Day surgery (SDC) | payer BC ==
[~2023-10-30 06:20] MED LIST changes: -LIDOCAINE-MPF 1% 5 ML VIAL ONE; +ceFAZolin 2 GM VIAL ONE
[2023-10-30] MEDS: LACTATED RINGERS 1,000 ML IV ONE ×2 (06:59→09:05)
--- NOTE | 2023-10-30 07:04 | ANESTHESIA ---
Pre-Anesthesia VS, & Labs - Diagnosis L breast mass - Procedure L breast excisional biopsy Vital Signs: Temp Pulse Resp BP Pulse Ox O2 Flow Rate 36.2 C L 97 15 146/97 H 98 10/30/23 06:43 10/30/23 06:43 10/30/23 06:43 10/30/23 06:43 10/30/23 06:43 Height: 5 ft 5 in Weight (kg): 90 kg Body Mass Index: 33.0 BMI Classification: Obese - NPO >8 hours - Is Patient ?: No - Lab Results Lab results reviewed: Yes Home Medications and Allergies Home Medications: Ambulatory Orders Losartan [Cozaar] 50 mg PO DAILY 10/17/23 Losartan [Cozaar] 50 mg PO DAILY 10/17/23 Allergies/Adverse Reactions: Allergies Allergy/AdvReac Type Severity Reaction Status Date / Time hydrocodone bitartrate * AdvReac Nausea Verified 09/05/22 01:53 [From Vicodin] Anes History & Medical History - Anesthetic History Anesthesia Complications: reports: No previous complications Family history of Anesthesia Complications: Denies Family history of Malignant Hyperthermia: Denies - Medical History Cardiovascular: reports: Hypertension Pulmonary: reports: None Gastrointestinal: reports: GERD, Other Urinary: reports: None Neuro: reports: Seizure disorder Musculoskeletal: reports: None Endocrine/Autoimmune: reports: None Blood Disorders: reports: None Skin: reports: None Smoking Status: Current every day smoker Psychosocial: reports: Alcohol (rare) History of Cancer?: No - Surgical History General: reports: Colonoscopy Gynecologic: reports: Hysterectomy, Other Exam General: Alert, Oriented x3, Cooperative Dental: WNL Mouth Openin Fingerbreadth Neck Mobility: Normal Mallampati classification: II Thyromental Distance: 4-6 cm Respiratory: Lungs clear, Normal breath sounds, No respiratory distress Cardiovascular: Regular rate Neurological: Normal speech Mental/Cognitive Status: Alert/Oriented X3, Normal for patient Cognitive Status: Within normal limits Plan Anesthesia Type: MAC Consent for Procedure(s) Verified and Reviewed: Yes Code Status: Attempt Resuscitation ASA classification: 2-Mild systemic disease Is this case an emergency?: No
[2023-10-30] MEDS ORDERED: PROPOFOL 200 MG/20 ML VIAL IVP ONE ×2 (07:09→07:14)
[2023-10-30] MEDS ORDERED: MIDAZOLAM 2 MG/2 ML VIAL ONE (07:09)
[2023-10-30] MEDS ORDERED: LIDOCAINE-PF 2% 10 ML AMP SUBQ ONE (07:09)
[2023-10-30] MEDS ORDERED: fentaNYL 100 MCG/2 ML VIAL ONE (07:09)
[2023-10-30] MEDS ORDERED: LIDOCAINE 1%-EPI 1:100000 20 ML MDV ONE (07:19)
[2023-10-30] MEDS ORDERED: BUPIVACAINE 0.5% PF 10 ML VIAL ONE (07:19)
[2023-10-30] MEDS ORDERED: MORPHINE 2 MG/ML CARPUJECT IVP PRN (07:58)
[2023-10-30] MEDS ORDERED: ePHEDrine 50 MG/ML VIAL IVP PRN (07:58)
[2023-10-30] MEDS ORDERED: fentaNYL 100 MCG/2 ML VIAL IVP PRN (07:58)
[2023-10-30] MEDS ORDERED: HYDROmorphone 0.5 MG/0.5 ML SYRINGE IVP PRN ×2 (07:58→09:47)
[2023-10-30] MEDS ORDERED: NALOXONE 0.4 MG/ML VIAL IVP PRN (07:58)
[2023-10-30] MEDS ORDERED: METOCLOPRAMIDE 10 MG/2 ML VIAL IVP PRN (07:58)
[2023-10-30] MEDS ORDERED: ONDANSETRON 4 MG/2 ML VIAL IVP PRN ×2 (07:58→09:47)
[2023-10-30] MEDS ORDERED: ATROPINE ABBOJECT 1 MG/10 ML SYRINGE IVP PRN (07:58)
[2023-10-30] MEDS ORDERED: LACTATED RINGERS 1,000 ML IV SCH (08:00)
[2023-10-30] MEDS ORDERED: DEXAMETHASONE 4 MG/ML VIAL ONE (08:29)
[2023-10-30] MEDS ORDERED: ROCURONIUM 50 MG/5 ML VIAL ONE (08:29)
[2023-10-30] MEDS ORDERED: ONDANSETRON 4 MG/2 ML VIAL ONE (08:29)
[2023-10-30] MEDS: BUPIVACAINE 0.5% PF 10 ML VIAL SUBQ ONE (08:41)
[2023-10-30] MEDS: LIDOCAINE 1%-EPI 1:100000 20 ML MDV SUBQ ONE (08:41)
[2023-10-30] MEDS ORDERED: SUGAMMADEX 200 MG/2 ML VIAL IVP ONE (08:46)
--- NOTE | 2023-10-30 09:00 | OPERATIVE REPORT ---
Operative Report - General Procedure Date: 10/30/23 Planned Procedure: Excisional biopsy, left breast Pre-Op Diagnosis: Left breast mass Procedure Performed: Excisional biopsy, left breast Post Op Diagnosis: Left breast mass - Procedure Note Primary Surgeon: Dr. Laura Mcneil Anesthesia Provider: Rick Alicea CRNA Anesthesia Technique: General ET tube (Initial attempts at TIVA and LMA were unsuccessful due to a reactive airway) Pathology: Left breast mass measuring 7 x 6.5 x 3.5 cm with biopsy clip on specimen mammogram sent for permanent pathology Estimated Blood Loss (mL): 5 Indications: The patient has a left breast mass which has increased in size and is painful to the patient especially during certain times of the month. She feels like the mass does get slightly larger and slightly smaller depending on the week. The mass is more than doubled in size since it has been followed on imaging. An initial biopsy demonstrated a fibroadenoma, however due to the size of the mass a phyllodes tumor cannot be ruled out. She was seen and evaluated in the clinic where we discussed the risks, benefits, and alternatives of excisional biopsy including bleeding, infection, damage to surrounding structures, and upstaging of the mass requiring additional surgery. The patient voiced understanding, her questions were answered, and she wished to proceed. A consent was signed by the patient in clinic. Findings: 1. 7 x 6.5 x 3.5 cm left breast mass, excised Complications: None - Other Other Information/Narrative: The patient was taken to the operating room and placed in the supine position. Preop antibiotics were given. ERAS medications were given. The patient was prepped and draped in the usual sterile fashion. Initial plan was for TIVA anesthesia, however due to the patient's reactive airway she did not tolerate this or an LMA well and was placed under general endotracheal anesthesia. A preop surgical timeout was performed. Attention was turned to the patient's left breast. An incision was made following the patient's skin folds, overlying the palpable mass at the 3 o'clock position. Skin flaps were raised superiorly and inferiorly to the incision. The dissection was carried down to the mass using electrocautery. Careful dissection was with electrocautery and blunt dissection was carried out circumferentially around the mass until it was freed from the surrounding tissues. Excellent hemostasis was confirmed. The mass was oriented on the back table short superior, long lateral, double anterior and sent for specimen mammogram. The mass measured 7 x 6.5 x 3.5 cm. The specimen was sent to mammography and the biopsy clip was confirmed to be within the specimen.The edges of the biopsy cavity were inspected and there were no palpable abnormalities. Hemostasis was confirmed. The cavity was irrigated with warm normal saline. Clips were placed in the superior, inferior, medial, lateral, anterior, and posterior margins of the biopsy cavity. The deep dermal tissues were closed with 3-0 Vicryl in an interrupted fashion. The skin was closed with 4-0 Monocryl in a running subcuticular fashion and a sterile dressing of skin glue was placed. The patient tolerated the procedure well. There were no complications. She was extubated in the operating room and transferred to the recovery room in stable condition.
[2023-10-30] MEDS ORDERED: oxyCODONE 5 MG TABLET PO PRN (09:47)
[2023-10-30] MEDS ORDERED: ACETAMINOPHEN 500 MG TABLET PO PRN (09:49)
[2023-10-30 10:23] VITALS: BP 137/81; O2SAT 99
--- NOTE | 2023-10-30 10:56 | ANESTHESIA POST OP EVALUATION ---
Anesthesia Post Eval - Post Anesthesia Eval Vitals: Last Vital Signs Temp 36.6 C 10/30/23 10:15 Pulse 79 10/30/23 10:15 Resp 16 10/30/23 10:15 BP 137/81 H 10/30/23 10:15 Pulse Ox 99 10/30/23 10:15 O2 Flow Rate CV Function Including HR & BP: Stable Pain Control: Satisfactory Nausea & Vomiting: Negative Mental Status: Baseline Respiratory Status: Airway Patent Hydration Status: Satisfactory Anesthesia Complications: None
--- NOTE | 2023-10-31 09:45 | Mammography Report ---
SPECIMEN LEFT BREAST: 10/30/2023 CLINICAL: Left breast specimen. Correlation is made to exams dated: 09/08/2023 mammogram and 08/31/2023 mammogram - [facility]. A specimen was imaged for the previous biopsy site located in the left breast at 2 o'clock posterior depth. IMPRESSION: SPECIMEN The imaged specimen includes a biopsy clip. This exam was interpreted at Station ID: [id number]. Deborah Weber M.D. lk/:10/30/2023 12:03:15 BI-RADS CATEGORY: () - Unspecified - other recall n/a LATERALITY: (B)
== END 2023-10-30 06:21 | disposition home or self-care (01) ==
LOC: SDS 06:20
PROVIDERS: ATTEND Surgery
PROC: 0HBU0ZX Excision of Left Breast, Open Approach, Diagnostic (ICD-10-PCS; principal; 2023-10-30 07:30)
DX: D24.2 Benign neoplasm of left breast (principal); E66.9 Obesity, unspecified; I10 Essential (primary) hypertension; Z68.33 Body mass index [BMI] 33.0-33.9, adult; Z87.891 Personal history of nicotine dependence
CPT/HCPCS: 19120; 76098; J7120

== ENCOUNTER 2023-11-03 09:50 | Outpatient (CLI) | payer BC ==
[2023-11-03] MEDS ORDERED: LIDOCAINE-MPF 1% 5 ML VIAL ONE (10:15)
[2023-11-03] MEDS: LIDOCAINE-MPF 1% 5 ML VIAL TD ONE (13:36)
--- NOTE | 2023-11-03 14:44 | Ultrasound Report ---
PROCEDURE: FNA Bx w/US Gdn 1st Les INDICATIONS: THYROID NODULE TECHNIQUE: The indications, alternatives, benefits, risks, and complications of the procedure were explained to the patient. Written informed consent was obtained and placed in the chart. The area of interest wa s examined sonographically and a site was chosen for ultrasound guided percutaneous sampling. The sk in was prepared and draped in the usual fashion, and anesthetized with 1% lidocaine infiltrated from the skin down to the lesion. Multiple passes were then performed, with contents emptied into an appr [facility] pathology specimen container. A bandage was applied to the area of access at completion of t he study. COMPARISON: 09/14/2023 FINDINGS: Location(s) of lesion(s) sampled: Right midpole [place]: 25 gauge hypodermic needles. Number of passes: 5 Medications: 1% lidocaine for local anaesthesia. Complications: None. IMPRESSION: Successful ultrasound-guided right thyroid nodule fine needle aspiration, with cytology results pendi ng. Reviewed by: Jocelyn Millan MD on 11/03/2023 2:42 PM PDT Approved by: Jocelyn Millan MD on 11/03/2023 2:42 PM PDT Station ID: [id number]
== END 2023-11-03 09:51 | disposition home or self-care (01) ==
LOC: DI 09:50
PROVIDERS: ATTEND Nurse Practitioner Family
DX: E04.1 Nontoxic single thyroid nodule (principal); E04.9 Nontoxic goiter, unspecified
CPT/HCPCS: 10005